=== PATIENT | male | born 2000 | race Caucasian/White ===

== ENCOUNTER 2023-02-19 21:36 | Emergency (ER) | payer BC ==
[2023-02-19 21:39] VITALS: BP 130/82; PULSE 85; RESP 18; TEMP 98.1; BMI 37.0
== END 2023-02-19 22:30 | disposition home or self-care (01) ==
LOC: JER 21:36
DX: Z11.52 Encounter for screening for COVID-19 (principal)
CPT/HCPCS: 0241U-QW; 99283-25